=== PATIENT | male | born 1985 | race Caucasian/White ===

== ENCOUNTER → 2017-05-22 | Outpatient (CLI) | payer OTHER ==
[~2017-05-22] MED LIST: CONTRAST GIVEN MC PRN; GADOBUTROL 7.5 MMOL/7.5 ML VIAL INT ART ONE; IOHEXOL 300 MG/ML 50 ML VIAL. INT ART ONE; LIDOCAINE 1% Multi-Dose 20 ML VIAL. ID ONE
--- NOTE | 2017-05-22 16:35 | KCIC ---
EXAM: Fluoroscopic guided left shoulder injection for MR arthrography. HISTORY: Pain. TECHNIQUE: The risks of the procedure were discussed with the patient and written and verbal consent was obtained. A time out was performed. Fluoroscopic imaging of the left shoulder was performed and a site overlying the joint space was selected for needle entry. The skin overlying this region was sterilely prepped, draped and infiltrated with 1% lidocaine. A spinal needle was then advanced into the joint space with fluoroscopic guidance. Subsequently, a solution containing 5 cc 1 percent lidocaine, 5 cc Omnipaque 300, 10 cc saline and 0.1 cc Gadavist was injected into the joint space. Fluoroscopic images demonstrate intraarticular accumulation of contrast. The needle was removed and a sterile bandage was placed at the needle entry site. The patient tolerated the procedure without difficulty and was transferred to the MR suite for the post injection MR portion of the exam. The total fluoroscopy time was 34 seconds on a single image was obtained. IMPRESSION: Successful fluoroscopic guided left shoulder injection for MR arthrography. Please refer to the separate MR arthrogram report for further evaluation details. Electronically signed by: Marie Umana MD (05/22/2017 4:32 PM) [id number]
--- NOTE | 2017-05-23 09:22 | KCIC ---
MR arthrogram of the left shoulder Indication: Left shoulder subluxation after an injury 2 weeks ago. Technique: Intra-articular contrast injected into the glenohumeral joint and is reported separately. Routine 4 plane sequences were obtained, including ABER positioning. Findings: Acromioclavicular joint:Intact. Rotator cuff: No evidence of rotator cuff tear. No significant fluid or contrast accumulation in the subacromial subdeltoid bursa. Subdeltoid bursa:No significant fluid or contrast accumulation. Articular cartilage: No acute cartilage defect or advanced DJD. Labrum: Very subtle signal identified in the inferior labrum, questionable significance. No evidence of labral tear or detachment. No paravertebral labral cyst. Biceps tendon: Intact Bones: No lesion or acute fracture. Soft tissue: No acute findings. Impression: No evidence of labral tear or other internal derangement. Electronically signed by: Aries Ricks MD (05/23/2017 9:19 AM) [id number]
== END | disposition home or self-care (01) ==
LOC: KCIC 15:17
PROVIDERS: ATTEND Physician Assistant Medical
DX: S43.082 Other subluxation of left shoulder joint (principal); X58.XXXD Exposure to other specified factors, subsequent encounter
CPT/HCPCS: 73040; 73222; A9585; Q9967